=== PATIENT | male | born 1995 | race American Indian/Alaskan Native ===

== ENCOUNTER 2018-12-26 16:56 | Emergency (ER) | payer OTHER ==
--- NOTE | 2018-12-26 17:35 | Emergency Department Report ---
Chief Complaint: Syncope Stated Complaint: PASSED OUT HIT HEAD Time Seen by Provider: 12/26/18 17:20 - HPI History of Present Illness: dizzy denies trauma worked last pm woke up dizzy states he passed out not forthcoming with info thc ambulatory 12 lead/CT/labs VSS MSE completed - Exam Vital Signs: Vital Signs 12/26/18 17:05 Temperature 98.7 F Pulse Rate 77 Respiratory 18 Rate Blood Pressure 130/85 O2 Sat by Pulse 99 Oximetry MSE screening note: Focused history and physical exam performed. Due to findings the following was ordered: ED Disposition for MSE Condition: Stable
[2018-12-26 17:54] LABS: Bilirubin,Urine NEG (Negative); Blood,Urine NEG (Negative); Color,Urine Yellow (Yellow); Mucus,Urine 2+ /HPF
[2018-12-26 17:56] LABS: Amphetamine Screen,Urine PRESUMPTIVE NEGATIVE; Benzodiazepines Screen,Urine PRESUMPTIVE NEGATIVE; Cocaine Screen,Urine PRESUMPTIVE NEGATIVE; Methadone Screen,Urine PRESUMPTIVE NEGATIVE; Opiate Screen,Urine PRESUMPTIVE NEGATIVE
[2018-12-26 17:56] LABS: Hematocrit 45.3 % (35.5-45.6); Hemoglobin 15.3 gm/dl (11.8-15.2); Mean Corpuscular HGB Conc 34 % (32-34); Mean Corpuscular Volume 80 fl (84-94); Platelet Count 265 K/mm3 (140-440); Red Blood Count 5.65 M/mm3 (3.65-5.03); Red Cell Distribution Width 14.4 % (13.2-15.2)
[2018-12-26 18:05] LABS: Alanine Aminotransferase 7 units/L (7-56); Albumin 4.8 g/dL (3.9-5); BUN/Creatinine Ratio 9; Blood Urea Nitrogen 9 mg/dL (9-20); Calcium 9.5 mg/dL (8.4-10.2); Hemolysis Index 9
[2018-12-26 18:15] LABS: Cannabinoid Screen,Urine PRESUMPTIVE POSITIVE
[2018-12-26] MEDS ORDERED: BENADRYL PO ONE (19:42)
[2018-12-26] MEDS ORDERED: IBUPROFEN PO ONE (19:42)
[2018-12-26] MEDS ORDERED: DELTASONE PO ONE (19:42)
[2018-12-26] MEDS ORDERED: AUGMENTIN 875 MG PO ONE (19:42)
--- NOTE | 2018-12-26 19:53 | Emergency Department Report ---
ED Syncope HPI - General Chief Complaint: Syncope Stated Complaint: PASSED OUT HIT HEAD Time Seen by Provider: 12/26/18 17:20 - History of Present Illness Initial Comments: This is an -Prydeinig male presents from nursing episode this a.m. striking his head on the floor patient doesn't S THC on occasion last night last time there is no chest pain there is no shortness of breath is no fever no chills sinu parris sinus congestion postnasal drip and bilateral earache for the last week symptoms are exacerbated by activity and position senses. Timing/Prior Episodes: no prior history, single episode today Precipitating Factors: Positive: other (dizziness ) Context: standing Episode Description: dizziness fell pt remembers event Loss of Consciousness: no loss of consciousness Current Symptoms: dizziness, other (sinus pain pressure ) - Related Data Allergies/Adverse Reactions: Allergies No Known Allergies Allergy (Unverified 12/26/18 17:05) Home Medications: Ambulatory Orders Amoxicillin/Potassium Clav [Augmentin 875-125 Tablet] 1 each PO BID 10 Days #20 tablet 12/26/18 Ibuprofen 800 mg PO TID PRN #30 tablet 12/26/18 Oxymetazoline 0.05% [Afrin] 2 spray NS BID PRN 3 Days #1 bottle 12/26/18 diphenhydrAMINE [Benadryl CAP] 25 mg PO Q6HR PRN #30 capsule 12/26/18 predniSONE [Deltasone] 40 mg PO QDAY 5 Days #10 tab 12/26/18 ED Review of Systems ROS: Stated complaint: PASSED OUT HIT HEAD Other details as noted in HPI Constitutional: denies: chills, fever Eyes: denies: eye pain, eye discharge, vision change ENT: ear pain, throat pain, congestion Respiratory: see HPI, cough. denies: shortness of breath, wheezing Cardiovascular: denies: chest pain, palpitations Endocrine: no symptoms reported Gastrointestinal: denies: abdominal pain, nausea, vomiting, diarrhea, cons tipation, hematemesis Genitourinary: denies: urgency, dysuria Musculoskeletal: denies: back pain, joint swelling, arthralgia Skin: denies: rash, lesions Neurological: denies: weakness, numbness, paresthesias, confusion, abnormal gait, vertigo Psychiatric: denies: anxiety, depression Hematological/Lymphatic: denies: easy bleeding, easy bruising ED Past Medical Hx - Past Medical History Previous Medical History?: Yes Additional medical history: Right shoulder injury - Surgical History Past Surgical History?: Yes Additional Surgical History: Right shoulder surgery - Social History Smoking Status: Current Every Day Smoker Substance Use Type: Alcohol, Marijuana - Medications Home Medications: Home Medications Medication Instructions Recorded Confirmed Last Taken Type Amoxicillin/Potassium Clav 1 each PO BID 10 Days #20 tablet 12/26/18 Unknown Rx [Augmentin 875-125 Tablet] Ibuprofen 800 mg PO TID PRN #30 tablet 12/26/18 Unknown Rx Oxymetazoline 0.05% [Afrin] 2 spray NS BID PRN 3 Days #1 bottle 12/26/18 Unknown Rx diphenhydrAMINE [Benadryl CAP] 25 mg PO Q6HR PRN #30 capsule 12/26/18 Unknown Rx predniSONE [Deltasone] 40 mg PO QDAY 5 Days #10 tab 12/26/18 Unknown Rx ED Physical Exam - General Limitations: No Limitations General appearance: alert, in no apparent distress - Head Head exam: Present: normocephalic, normal inspection - Expanded Head Exam Expanded Head exam: Absent: laceration, abrasion, contusion, hematoma, racoon eyes, canchola's sign, general tenderness, tenderness of temporal artery, CSF rhinorrhea, CSF otorrhea - Eye Eye exam: Present: normal appearance, PERRL, EOMI Pupils: Present: normal accommodation - ENT ENT exam: Present: normal orophraynx, mucous membranes moist, TM's normal bilaterally, normal external ear exam. Absent: other (abialt sinus ) - Expanded ENT Exam Expanded Ear exam: Present: normal external inspection, other (bilat maxillary sinus tenderness swelling no yellow clear nasal postal ) Throat exam: Positive: normal inspection. Negative: tonsillar erythema, tonsillomegaly, tonsillar exudate, R peritonsillar mass, L peritonsillar mass - Neck Neck exam: Present: normal inspection, full ROM. Absent: tenderness, meningismus, lymphadenopathy, thyromegaly - Expanded Neck Exam Expanded Neck exam: Absent: tenderness, midline deformity, anterior neck swelling, thyroid mass, carotid bruit, tracheal deviation - Respiratory Respiratory exam: Present: normal lung sounds bilaterally. Absent: respiratory distress, wheezes, stridor, chest wall tenderness - Cardiovascular Cardiovascular Exam: Present: regular rate, normal rhythm, normal heart sounds - GI/Abdominal GI/Abdominal exam: Present: soft, normal bowel sounds. Absent: distended, tenderness, guarding, rebound, bruit, hernia - Rectal Rectal exam: Present: deferred - Extremities Exam Extremities exam: Present: normal inspection, full ROM. Absent: tenderness - Back Exam Back exam: Present: normal inspection, full ROM. Absent: tenderness, CVA tenderness (R), CVA tenderness (L), muscle spasm, paraspinal tenderness, vertebral tenderness, rash noted - Neurological Exam Neurological exam: Present: alert, oriented X3, CN II-XII intact, normal gait, reflexes normal. Absent: motor sensory deficit - Expanded Neurological Exam Expanded Patient oriented to: Present: person, place, time Speech: Present: fluid speech Cranial nerves: EOM's Intact: Normal, Gag Reflex: Normal, Tongue Deviation: Normal, Nystagmus: Normal, Facial Sensation: Normal, Facial Palsy with Forehead Movement: Normal, Facial Palsy without Forehead Movement: Normal Cerebellar function: Finger to Nose: Normal, Heel to [place]: Normal, Romberg: Normal Upper motor neuron: Tarun Neglect: Normal, Pronator Drift: Normal, Babinski Sign: Normal, Sensory Extinction: Normal Sensory exam: Upper Extremity Light Touch: Normal, Upper Extremity Pin Prick: Normal, Upper Extremity Temperature: Normal, UE 2 Point Discrimination: Normal, Lower Extremity Light Touch: Normal, Lower Extremity Pin Prick: Normal, Lower Extremity Temperature: Normal, LE 2 Point Discrimination: Normal Motor strength exam: RUE: 5, LUE: 5, RLE: 5, LLE: 5 DTR: bicep (R): 2+, bicep (L): 2+, ankle (R): 2+, ankle (L): 2+ Best Eye Response (Abel): (4) open spontaneously Best Motor Response (Abel): (6) obeys commands Best Verbal Response (Abel): (5) oriented [place] Total: 15 - Psychiatric Psychiatric exam: Present: normal affect, normal mood - Skin Skin exam: Present: warm, dry, intact, normal color. Absent: rash ED Course Vital Signs 12/26/18 17:05 Temperature 98.7 F Pulse Rate 77 Respiratory 18 Rate Blood Pressure 130/85 O2 Sat by Pulse 99 Oximetry ED Medical Decision Making - Lab Data Result diagrams: 12/26/18 17:39 12/26/18 17:39 Labs 12/26/18 12/26/18 12/26/18 17:25 17:35 17:37 WBC RBC Hgb Hct MCV MCH MCHC RDW Plt Count Sodium Potassium Chloride Carbon Dioxide Anion Gap BUN Creatinine Estimated GFR BUN/Creatinine Ratio Glucose POC Glucose 79 Calcium Total Bilirubin AST ALT Alkaline Phosphatase Total Protein Albumin Albumin/Globulin Ratio Urine Color Yellow Urine Turbidity Clear Urine pH 5.0 Ur Specific [place] 1.033 H Urine Protein 30 mg/dl Urine Glucose (UA) Neg Urine Ketones Tr Urine Blood Neg Urine Nitrite Neg Urine Bilirubin Neg Urine Urobilinogen 2.0 Ur Leukocyte Esterase Tr Urine WBC (Auto) 4.0 Urine RBC (Auto) 3.0 Urine Mucus 2+ Urine Opiates Screen Presumptive negative Urine Methadone Screen Presumptive negative Ur Barbiturates Screen Presumptive negative Ur Phencyclidine Scrn Presumptive negative Ur Amphetamines Screen Presumptive negative U Benzodiazepines Scrn Presumptive negative Urine Cocaine Screen Presumptive negative U Marijuana (THC) Screen Presumptive positive Drugs of Abuse Note Disclamer 12/26/18 12/26/18 17:39 17:39 WBC 3.6 L RBC 5.65 H Hgb 15.3 H Hct 45.3 MCV 80 L MCH 27 L MCHC 34 RDW 14.4 Plt Count 265 Sodium 137 Potassium 4.1 Chloride 99.9 Carbon Dioxide 27 Anion Gap 14 BUN 9 Creatinine 1.0 Estimated GFR > 60 BUN/Creatinine Ratio 9 Glucose 89 POC Glucose Calcium 9.5 Total Bilirubin 0.70 AST 26 ALT 7 Alkaline Phosphatase 63 Total Protein 7.3 Albumin 4.8 Albumin/Globulin Ratio 1.9 Urine Color Urine Turbidity Urine pH Ur Specific [place] Urine Protein Urine Glucose (UA) Urine Ketones Urine Blood Urine Nitrite Urine Bilirubin Urine Urobilinogen Ur Leukocyte Esterase Urine WBC (Auto) Urine RBC (Auto) Urine Mucus Urine Opiates Screen Urine Methadone Screen Ur Barbiturates Screen Ur Phencyclidine Scrn Ur Amphetamines Screen U Benzodiazepines Scrn Urine Cocaine Screen U Marijuana (THC) Screen Drugs of Abuse Note - EKG Data EKG shows normal: sinus rhythm Rate: normal - EKG Data When compared to previous EKG there are: previous EKG unavailable Interpretation: normal EKG (ekg interp by ed attending ekg is NSR no st elevation no ectopy.) - Radiology Data Radiology results: image reviewed PROCEDURE: CT HEAD/BRAIN WO CON TECHNIQUE: Computerized tomography of the head was performed without contrast material. Imaging was obtained in axial increments. CT DOSE LENGTH PRODUCT: 1049.83 mGycm HISTORY: DIZZY COMPARISONS: None . FINDINGS: The ventricular system is normal in size and configuration. There is no evidence for parenchymal volume loss. There is no evidence for mass lesion, mass effect, midline shift, acute intracranial hemorrhage, or acute ischemia/ infarction. No evidence for acute skull fracture is seen. No abnormality in the overlying scalp soft tissues is seen. Visualized paranasal sinuses and air-fluid level in the left sphenoid sinus. IMPRESSION: No acute intracranial process noted. Acute left sphenoid sinusitis This document is electronically signed by Nguyen Pierce MD., December 26 2018 07:51:58 PM ET Transcribed By: [facility] Dictated By: NGUYEN PIERCE MD Electronically Authenticated By: NGUYEN PIERCE MD Signed Date/Time: 12/26/181953 normal ct head - Medical Decision Making CT scan normal no mass no bleed , this is a near syncopal episode with sinusitis pt advised to stop THC , hydrate, will treat with benadryl, ibuprofen, afrin , augmentin pt will follow up with pcp in 2-3 days pt given referral to [facility] in 2-3 days. pt verbalized agreement and understanding discharge plan. pt for dc to home in stable condition at this time. Critical care attestation.: If time is entered above; I have spent that time in minutes in the direct care of this critically ill patient, excluding procedure time. ED Disposition Clinical Impression: Near syncope Sinusitis Qualifiers: Sinusitis location: maxillary Chronicity: acute Recurrence: non-recurrent Qualified Code(s): J01.00 - Acute maxillary sinusitis, unspecified Disposition: DC-01 TO HOME OR SELFCARE Is pt being admited?: No Does the pt Need Aspirin: No Condition: Stable Instructions: Sinusitis (ED), Near Syncope (ED) Prescriptions: Oxymetazoline 0.05% [Afrin] 2 spray NS BID PRN 3 Days #1 bottle PRN Reason: Nasal Congestion Amoxicillin/Potassium Clav [Augmentin 875-125 Tablet] 1 each PO BID 10 Days #20 tablet diphenhydrAMINE [Benadryl CAP] 25 mg PO Q6HR PRN #30 capsule PRN Reason: Congestion predniSONE [Deltasone] 40 mg PO QDAY 5 Days #10 tab Ibuprofen 800 mg PO TID PRN #30 tablet PRN Reason: pain fever Referrals: EVELYN RUIZ MD [Primary Care Provider] - 3-5 Days [facility] [Outside] - 3-5 Days Forms: Work/School Release Form(ED) Time of Disposition: 20:21
--- NOTE | 2018-12-26 19:54 | Cat Scan Report ---
PROCEDURE: CT HEAD/BRAIN WO CON TECHNIQUE: Computerized tomography of the head was performed without contrast material. Imaging was obtained in axial increments. CT DOSE LENGTH PRODUCT: 1049.83 mGycm HISTORY: DIZZY COMPARISONS: None . FINDINGS: The ventricular system is normal in size and configuration. There is no evidence for parenchymal volu me loss. There is no evidence for mass lesion, mass effect, midline shift, acute intracranial hemorrhage, or a cute ischemia/ infarction. No evidence for acute skull fracture is seen. No abnormality in the overlying scalp soft tissues is s een. Visualized paranasal sinuses and air-fluid level in the left sphenoid sinus. IMPRESSION: No acute intracranial process noted. Acute left sphenoid sinusitis This document is electronically signed by Nguyen Pierce MD., December 26 2018 07:51:58 PM ET
[2018-12-26 20:35] VITALS: BP 111/73
== END 2018-12-26 20:36 | disposition home or self-care (01) ==
LOC: ED 16:56
DX: R55 Syncope and collapse (principal); J32.9 Chronic sinusitis, unspecified; F17.200 Nicotine dependence, unspecified, uncomplicated; F12.10 Cannabis abuse, uncomplicated; Z79.899 Other long term (current) drug therapy
CPT/HCPCS: 36415; 70450; 80053; 80307; 81001; 82962; 85027; 93005; 93010; 99284; J7512